=== PATIENT | female | born 1990 | race Caucasian/White ===

== ENCOUNTER → 2017-01-03 | Outpatient (REF) | payer OTHER ==
[~2017-01-03] MED LIST: ACET50TA PO; IBUP80TA PO
== END ==
LOC: M LAB REF 19:04
PROVIDERS: ATTEND Physician Assistant Medical
DX: J02.9 Acute pharyngitis, unspecified (principal)

== ENCOUNTER → 2017-03-05 | Outpatient (REF) | payer OTHER | LOC: M SFHCWAGY 10:34 | PROVIDERS: ATTEND Nurse Practitioner Women's Health | DX: Z12.4 Encounter for screening for malignant neoplasm of cervix (principal) ==

== ENCOUNTER → 2017-09-25 | Outpatient (REF) | payer OTHER ==
[2017-09-25 21:24] LABS: BASO % 0.3 % (0.0-1.0); EOS # 0.1 10^3/uL (0.0-0.50); EOS % 0.5 % (0.0-3.0); IMMATURE GRANULOCYTE % 0.4 % (0-0); LYMPH # 2.6 10^3/uL (1.5-6.5); LYMPH % 18.9 % (24.0-44.0); MEAN CORPUSCULAR HEMOGLOBIN 31.7 pg (27.0-33.0); MEAN CORPUSCULAR HGB CONC 32.6 g/dl (32.0-36.5); MEAN CORPUSCULAR VOLUME 97.3 fl (80.0-96.0); MONO # 0.7 10^3/uL (0.0-0.8); MONO % 4.8 % (0.0-5.0); NEUTROPHILS # 10.4 10^3/uL (1.8-7.7); NEUTROPHILS % 75.1 % (36.0-66.0); PLATELET COUNT, AUTOMATED 278 10^3/uL (150-450); RED CELL DISTRIBUTION WIDTH 13.3 % (11.5-14.5); WHITE BLOOD COUNT 13.9 10^3/uL (4.0-10.0)
[2017-09-26 10:36] LABS: HBsAg Prenatal NEGATIVE (NEGATIVE)
== END ==
LOC: M LAB REF 09:41
PROVIDERS: ATTEND Advanced Practice Midwife
DX: Z34.80 Encounter for supervision of other normal pregnancy, unspecified trimester (principal); Z3A.00 Weeks of gestation of pregnancy not specified

== ENCOUNTER → 2017-11-03 | Outpatient (CLI) | payer OTHER | LOC: M SMT 11:37 | PROVIDERS: ATTEND Advanced Practice Midwife | DX: Z13.79 Encounter for other screening for genetic and chromosomal anomalies (principal) ==

== ENCOUNTER → 2017-11-13 | Outpatient (REF) | payer OTHER | LOC: M LAB REF 10:47 | DX: R21 Rash and other nonspecific skin eruption (principal) | CPT/HCPCS: 87070 ==

== ENCOUNTER → 2017-11-24 | Outpatient (CLI) | payer OTHER | LOC: M WHC 14:47 | DX: Z34.82 Encounter for supervision of other normal pregnancy, second trimester (principal); Z3A.19 19 weeks gestation of pregnancy | CPT/HCPCS: 76811 ==

== ENCOUNTER → 2018-01-16 | Outpatient (CLI) | payer OTHER ==
[2018-01-16 13:49] LABS: HEMATOCRIT 32.1 % (36.0-47.0); HEMOGLOBIN 10.6 g/dl (12.0-16.0); MEAN CORPUSCULAR HEMOGLOBIN 31.8 pg (27.0-33.0); MEAN CORPUSCULAR VOLUME 96.4 fl (80.0-96.0); PLATELET COUNT, AUTOMATED 266 10^3/uL (150-450); RED BLOOD COUNT 3.33 10^6/uL (4.00-5.40); RED CELL DISTRIBUTION WIDTH 13.3 % (11.5-14.5); WHITE BLOOD COUNT 11.2 10^3/uL (4.0-10.0)
[2018-01-16 14:05] LABS: GLUCOSE CHALLENGE TEST 1 HOUR 114 MG/DL (LESS THAN 140)
[2018-01-19 08:03] LABS: RH ONLY RHOGAM 1 1
== END ==
LOC: M SMT 10:21
DX: Z34.82 Encounter for supervision of other normal pregnancy, second trimester (principal)
CPT/HCPCS: 82950

== ENCOUNTER 2018-02-25 11:43 | Outpatient (CLI) | payer OTHER ==
[2018-02-25 12:34] LABS: HEMATOCRIT 32.9 % (36.0-47.0); HEMOGLOBIN 11.1 g/dl (12.0-15.5); MEAN CORPUSCULAR HEMOGLOBIN 31.5 pg (27.0-33.0); MEAN CORPUSCULAR HGB CONC 33.7 g/dl (32.0-36.5); MEAN CORPUSCULAR VOLUME 93.5 fl (80.0-96.0); PLATELET COUNT, AUTOMATED 296 10^3/uL (150-450); RED BLOOD COUNT 3.52 10^6/uL (4.00-5.40); RED CELL DISTRIBUTION WIDTH 12.5 % (11.5-14.5); WHITE BLOOD COUNT 13.7 10^3/uL (4.0-10.0)
[2018-02-25 12:44] LABS: FIBRINOGEN 594 MG/DL (221-452); PARTIAL THROMBOPLASTIN TIME 26.2 SECONDS (26.8-37.9); PROTHROMBIN TIME 12.2 SECONDS (12.4-14.5)
[2018-02-25] MEDS: BETAMETHASONE SOLUSPAN 6MG/ML INJ 5ML (J0702) IM (14:00)
[2018-02-26] MEDS: BETAMETHASONE SOLUSPAN 6MG/ML INJ 5ML (J0702) IM (09:39)
== END 2018-02-26 09:59 | disposition home or self-care (01) ==
LOC: M LDO 11:43
DX: O36.8330 Maternal care for abnormalities of the fetal heart rate or rhythm, third trimester, not applicable or unspecified (principal); Z3A.32 32 weeks gestation of pregnancy
CPT/HCPCS: J0702

== ENCOUNTER → 2018-03-12 | Outpatient (CLI) | payer OTHER | LOC: M SMT 14:40 | DX: O41.00X1 Oligohydramnios, unspecified trimester, fetus 1 (principal); Z3A.34 34 weeks gestation of pregnancy | CPT/HCPCS: 76815 ==

== ENCOUNTER → 2018-03-18 | Outpatient (REF) | payer OTHER | LOC: M LAB REF 17:24 | DX: Z34.83 Encounter for supervision of other normal pregnancy, third trimester (principal) ==

== ENCOUNTER 2018-04-11 01:10 | Inpatient (IN) | payer OTHER ==
[2018-04-11] MEDS ORDERED: LR 1,000 ML IV (01:48)
[2018-04-11 02:07] LABS: HEMATOCRIT 35.3 % (36.0-47.0); HEMOGLOBIN 11.8 g/dl (12.0-15.5); MEAN CORPUSCULAR HEMOGLOBIN 30.1 pg (27.0-33.0); MEAN CORPUSCULAR HGB CONC 33.4 g/dl (32.0-36.5); MEAN CORPUSCULAR VOLUME 90.1 fl (80.0-96.0); PLATELET COUNT, AUTOMATED 250 10^3/uL (150-450); RED BLOOD COUNT 3.92 10^6/uL (4.00-5.40); RED CELL DISTRIBUTION WIDTH 13.6 % (11.5-14.5); WHITE BLOOD COUNT 12.2 10^3/uL (4.0-10.0)
[2018-04-11] MEDS ORDERED: OXYTOCIN 30 UNITS IN 0.9% NaCl 500ML IV BAG (J2590) As Ordered (02:18)
[2018-04-11] MEDS ORDERED: MEASLES,MUMPS,RUBELLA VACCINE INJ (MMR-II) (90707) SC (02:45)
[2018-04-11] MEDS ORDERED: ONDANSETRON 4MG/2ML VIAL (J2405) IV (02:45)
[2018-04-11] MEDS ORDERED: ACETAMINOPHEN 500 MG TAB PO (02:45)
[2018-04-11] MEDS ORDERED: DOCUSATE SODIUM 100 MG CAP PO (02:45)
[2018-04-11] MEDS ORDERED: PROMETHAZINE 25 MG TAB PO (02:45)
[2018-04-11] MEDS: OXYTOCIN DRIP 30 UNITS in APPROPRIATE DILUENT 1 EA IV (04:01)
[2018-04-11] MEDS: LIDOCAINE 1% MDV 20ML VIAL SC (04:48)
[2018-04-11] MEDS: LACTATED RINGER'S 1000 ML IV (04:49)
[2018-04-11] MEDS: LR 1,000 ML IV ×3 (04:49→18:36)
[2018-04-11] MEDS: PRENATAL VITAMINS CHEWABLE TABLET PO (08:16)
[2018-04-11] MEDS: IBUPROFEN 800 MG TAB PO ×2 (08:16→20:16)
[2018-04-11] MEDS: DIBUCAINE 1% OINTMENT 30GM TOP ×2 (08:16→20:16)
[2018-04-12 09:49] LABS: AB SCREEN MAN TUBE 1 1
[2018-04-12] MEDS: PRENATAL VITAMINS CHEWABLE TABLET PO (10:10)
[2018-04-12] MEDS: RHOGAM 300 MCG (1500 IU) INJ (J2790) IM (10:10)
== END 2018-04-12 13:15 | disposition home or self-care (01) | DRG 560 ==
LOC: M LDO 01:10 → M LDI 02:08 → M OBS 04:30
PROVIDERS: Emergency Medicine Pediatric Emergency Medicine; Obstetrics & Gynecology
PROC: 10E0XZZ Delivery of Products of Conception, External Approach (ICD-10-PCS; principal; 2018-04-11)
PROC: 0HQ9XZZ Repair Perineum Skin, External Approach (ICD-10-PCS; 2018-04-11)
DX: O41.03X0 Oligohydramnios, third trimester, not applicable or unspecified (principal); O70.0 First degree perineal laceration during delivery; Z37.0 Single live birth; Z3A.39 39 weeks gestation of pregnancy

== ENCOUNTER → 2018-09-23 | Outpatient (REF) | payer OTHER ==
[2018-09-24 14:53] LABS: FERRITIN 15 NG/ML (8-252); IRON (FE) 65 UG/DL (50-170); PERCENT SATURATION 15.2 % (13.2-45.0); TOTAL IRON BINDING CAPACITY 429 UG/DL (250-450); VITAMIN B12 LEVEL 356 PG/ML (247-911)
== END ==
LOC: M LAB REF 11:57
DX: D64.9 Anemia, unspecified (principal)

== ENCOUNTER 2019-08-06 12:49 | Emergency (ER) | payer OTHER ==
[~2019-08-06] VITALS: Ht 154.9 cm; Wt 65.9 kg
[~2019-08-06 12:49] MED LIST changes: -ACET50TA PO; +IBUP-1114 PO; +MAPA500T2 PO; +PRENTAB9 PO
[2019-08-06] MEDS ORDERED: KELN1TAB PO (13:04)
[2019-08-06] MEDS ORDERED: ONDANSETRON 4MG/2ML VIAL (J2405) As Ordered ONE (13:28)
[2019-08-06] MEDS ORDERED: ONDANSETRON 4MG/2ML VIAL (J2405) IV ONE ×2 (13:30→14:15)
[2019-08-06 13:36] LABS: BASO % 0.4 % (0.0-1.0); EOS # 0.1 10^3/uL (0.0-0.5); EOS % 0.5 % (0.0-3.0); HEMATOCRIT 38.6 % (36.0-47.0); HEMOGLOBIN 12.9 g/dl (12.0-15.5); LYMPH # 3.8 10^3/uL (1.5-5.0); LYMPH % 33.3 % (24.0-44.0); MEAN CORPUSCULAR HGB CONC 33.4 g/dl (32.0-36.5); MEAN CORPUSCULAR VOLUME 92.8 fl (80.0-96.0); MONO # 0.6 10^3/uL (0.0-0.8); NEUTROPHILS # 6.8 10^3/uL (1.5-8.5); NEUTROPHILS % 60.5 % (36.0-66.0); PLATELET COUNT, AUTOMATED 327 10^3/uL (150-450); RED BLOOD COUNT 4.16 10^6/uL (4.00-5.40); WHITE BLOOD COUNT 11.3 10^3/uL (4.0-10.0)
[2019-08-06 13:59] LABS: ALBUMIN 4.1 GM/DL (3.2-5.2); ALT/SGPT 16 U/L (12-78); BILIRUBIN,TOTAL 0.3 MG/DL (0.2-1.0); BLOOD UREA NITROGEN 8 MG/DL (7-18); CALCIUM LEVEL 9.3 MG/DL (8.5-10.1); CARBON DIOXIDE LEVEL 23 MEQ/L (21-32); CHLORIDE LEVEL 102 MEQ/L (98-107); GLOMERULAR FILTRATION RATE > 60.0 (>60); GLUCOSE, FASTING 141 MG/DL (70-100); POTASSIUM SERUM 3.3 MEQ/L (3.5-5.1); SODIUM LEVEL 138 MEQ/L (136-145); TOTAL PROTEIN 7.6 GM/DL (6.4-8.2)
[2019-08-06] MEDS ORDERED: MECLIZINE 25 MG TABLET PO ONE (14:00)
--- NOTE | 2019-08-06 15:25 | REP ---
CT of the brain without IV contrast: There are no comparisons. There is no hemorrhage. There is no edema, mass effect or midline shift. The ventricles are normal size and midline. The cortical stripe is unremarkable. The visualized paranasal sinuses and mastoid air cells are clear. Impression: Essentially negative CT study of the brain. Electronically Signed by Amilcar Spangler MD 08/06/2019 03:16 P
[2019-08-06] MEDS ORDERED: METOCLOPRAMIDE INJ 10MG/2ML VIAL (J2765) IV ONE (16:45)
[2019-08-06] MEDS ORDERED: diazePAM 5 MG TAB PO ONE (16:45)
[2019-08-06] MEDS ORDERED: Vestibular PT (16:59)
[2019-08-06] MEDS ORDERED: PSEU30TA85 PO (16:59)
[2019-08-06] MEDS ORDERED: FLON1SPR NARES (16:59)
[2019-08-06] MEDS ORDERED: ONDA4TAB6 PO (16:59)
[2019-08-06] MEDS ORDERED: VALI5TAB PO (16:59)
[2019-08-06 17:10] VITALS: BP 123/56
--- NOTE | 2019-08-06 19:13 | ECGEPIP ---
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
== END 2019-08-06 17:20 | disposition home or self-care (01) ==
LOC: M ED 12:49
DX: H81.399 Other peripheral vertigo, unspecified ear (principal); J30.9 Allergic rhinitis, unspecified; Z79.3 Long term (current) use of hormonal contraceptives
CPT/HCPCS: 70450; 80053; 84702; 85025; 93005; 93041; 96374; 96375; 96376; 97161; 99285; J2405; J2765

== ENCOUNTER 2019-08-13 10:30 | Outpatient (RCR) | payer OTHER ==
[~2019-08-13 10:30] MED LIST changes: +FLON1SPR NARES; +KELN1TAB PO; +ONDA4TAB6 PO; +PSEU30TA85 PO; +VALI5TAB PO; +Vestibular PT
== END 2019-08-16 ==
LOC: M PT 10:30
PROVIDERS: ATTEND Internal Medicine
DX: H81.10 Benign paroxysmal vertigo, unspecified ear (principal); H81.399 Other peripheral vertigo, unspecified ear; J30.9 Allergic rhinitis, unspecified

== ENCOUNTER → 2020-04-07 | Outpatient (REF) | payer OTHER | LOC: M SFHCWAGY 17:30 | PROVIDERS: ATTEND Nurse Practitioner Women's Health | DX: Z12.4 Encounter for screening for malignant neoplasm of cervix (principal) ==

== ENCOUNTER → 2022-05-14 | Outpatient (REF) | payer OTHER ==
[~2022-05-14] MED LIST changes: -PSEU30TA85 PO; +PSEU30TA86 PO
== END ==
LOC: M PLALAB 07:44
PROVIDERS: ATTEND Advanced Practice Midwife
DX: Z12.4 Encounter for screening for malignant neoplasm of cervix (principal)

== ENCOUNTER → 2023-05-27 | Outpatient (REF) | payer OTHER ==
[2023-06-10 11:20] LABS: DEHYDROEPIANDROSTERONE UNCONJ 129 ng/dL (31-701); TESTOSTERONE FREE (DIRECT) 2.6 pg/mL (0.0-4.2)
== END ==
LOC: M PLALAB 10:09
PROVIDERS: ATTEND Advanced Practice Midwife
DX: Z12.4 Encounter for screening for malignant neoplasm of cervix (principal)
CPT/HCPCS: 36415; 82626; 84402; 84443; 87624; G0123

== ENCOUNTER → 2024-01-13 | Outpatient (CLI) | payer OTHER ==
[~2024-01-13] MED LIST changes: +GASTROGRAFIN SOLUTION 30ML As Ordered ONE
== END ==
LOC: M RAD 12:48
PROVIDERS: ATTEND Internal Medicine
DX: R10.811 Right upper quadrant abdominal tenderness (principal); R10.812 Left upper quadrant abdominal tenderness
CPT/HCPCS: 74176; Q9963

== ENCOUNTER 2024-02-13 07:30 | Day surgery (SDC) | payer OTHER ==
[~2024-02-13] VITALS: Ht 152.4 cm; Wt 67.0 kg
[~2024-02-13 07:30] MED LIST changes: +CLAR10CA3 PO; -GASTROGRAFIN SOLUTION 30ML As Ordered ONE; +L-NO1TBD6 PO; +LR 1,000 ML IV SCH; +THERTAB52 PO
[2024-02-13] MEDS ORDERED: LR 1,000 ML IV SCH ×2 (07:55→09:55)
[2024-02-13] MEDS ORDERED: HYDROmorphone HCL 2MG/ML 1ML VIAL As Ordered ONE (08:09)
[2024-02-13] MEDS ORDERED: ROCURONIUM BROMIDE 50MG/5ML VIAL As Ordered ONE (08:09)
[2024-02-13] MEDS ORDERED: fentaNYL 100 MCG/2 ML INJECTION As Ordered ONE (08:09)
[2024-02-13] MEDS ORDERED: MIDAZOLAM INJ 2MG/2ML VIAL As Ordered ONE (08:09)
[2024-02-13] MEDS ORDERED: SUGAMMADEX SODIUM 500 MG/5 ML VIAL (BRIDION) As Ordered ONE (08:09)
[2024-02-13] MEDS ORDERED: ACETAMINOPHEN 1000MG 100ML IV BAG As Ordered ONE (08:10)
[2024-02-13] MEDS ORDERED: propofoL 200 MG/20 ML VIAL As Ordered ONE (08:10)
[2024-02-13] MEDS ORDERED: LIDOCAINE 2% 100MG/5ML SDV (FOR ANES.) As Ordered ONE (08:10)
[2024-02-13] MEDS ORDERED: KETOROLAC 60MG 2ML VIAL As Ordered ONE (08:10)
[2024-02-13] MEDS ORDERED: ONDANSETRON 4MG 2ML VIAL As Ordered ONE (08:10)
[2024-02-13 08:25] LABS: HEMOGLOBIN 13.4 g/dl (12.0-15.5); MEAN CORPUSCULAR HEMOGLOBIN 30.9 pg (27.0-33.0); MEAN CORPUSCULAR HGB CONC 32.7 g/dl (32.0-36.5); MEAN CORPUSCULAR VOLUME 94.5 fl (80.0-96.0); PLATELET COUNT, AUTOMATED 306 10^3/uL (150-450); RED BLOOD COUNT 4.34 10^6/uL (4.00-5.40); WHITE BLOOD COUNT 6.6 10^3/uL (4.0-10.0)
[2024-02-13 08:46] LABS: HCG, SERUM QUALITATIVE NEGATIVE (NEGATIVE)
[2024-02-13] MEDS: SCOPOLAMINE 1MG TRANSDERMAL PATCH As Ordered ONE (09:05)
[2024-02-13] MEDS: SILVER NITRATE APPLICATOR (1 = QTY 10) As Ordered ONE (09:30)
[2024-02-13] MEDS ORDERED: oxyCODONE 5MG TAB PO PRN (09:55)
[2024-02-13] MEDS ORDERED: HYDROMORPHONE HCL 0.5 MG/ 0.5 ML SYRINGE IV PRN (09:55)
[2024-02-13] MEDS ORDERED: fentaNYL 100 MCG/2 ML INJECTION IV PRN (09:55)
[2024-02-13] MEDS ORDERED: IBUP80TA PO (10:10)
[2024-02-13] MEDS ORDERED: COLA100C5 PO (10:11)
[2024-02-13] MEDS ORDERED: PERC5TAB12 PO (10:12)
[2024-02-13] MEDS: ONDANSETRON 4MG 2ML VIAL IV PRN (11:10)
[2024-02-13] MEDS ORDERED: PROMETHAZINE 25MG/ML 1ML VIAL IV PRN (12:15)
[2024-02-13] MEDS: METOCLOPRAMIDE INJ 10MG/2ML VIAL IV STA (12:35)
[2024-02-13 13:30] VITALS: BP 120/58; TEMP 98; O2SAT 97
== END 2024-02-13 13:35 | disposition home or self-care (01) ==
LOC: M SDC 07:30
PROVIDERS: ATTEND Obstetrics & Gynecology
DX: Z30.2 Encounter for sterilization (principal); Z79.3 Long term (current) use of hormonal contraceptives
CPT/HCPCS: 36415; 58661; 84703; 85027; 86850; 86900; 86901; 88302; J0131; J0665; J1100; J1170; J1885; J2250; J2405; J2765; J3010

== ENCOUNTER → 2024-11-23 | Outpatient (REF) | payer OTHER ==
[~2024-11-23] MED LIST changes: +COLA100C5 PO; -LR 1,000 ML IV SCH; +ONDA-282 PO; -ONDA4TAB6 PO; +PERC5TAB12 PO; -PSEU30TA86 PO; +PSEU30TA87 PO
== END ==
LOC: M SFHCWAGY 17:25
PROVIDERS: ATTEND Advanced Practice Midwife
DX: Z12.4 Encounter for screening for malignant neoplasm of cervix (principal)
CPT/HCPCS: 87624; G0123

== ENCOUNTER → 2025-08-29 | Outpatient (REF) | payer OTHER | LOC: M PLALAB 13:05 | PROVIDERS: ATTEND Advanced Practice Midwife | DX: N76.0 Acute vaginitis (principal) ==

== ENCOUNTER → 2025-08-29 | Outpatient (CLI) | payer OTHER ==
[2025-08-29 13:58] LABS: PLATELET COUNT, AUTOMATED 308 10^3/uL (150-450)
[2025-08-29 14:00] LABS: FREE T4 1.07 NG/DL (0.89-1.76)
== END ==
LOC: M PLALAB 11:11
PROVIDERS: ATTEND Advanced Practice Midwife
DX: R53.83 Other fatigue (principal)

== ENCOUNTER → 2025-09-19 | Outpatient (CLI) | payer OTHER | LOC: M WHC 08:26 | PROVIDERS: ATTEND Advanced Practice Midwife | DX: N94.89 Other specified conditions associated with female genital organs and menstrual cycle (principal) ==

== ENCOUNTER → 2025-10-28 | Outpatient (REF) | payer OTHER | LOC: M LAB REF 12:04 | DX: R00.2 Palpitations (principal); R07.9 Chest pain, unspecified ==